=== PATIENT | female | born 1980 | race Caucasian/White ===

== ENCOUNTER → 2017-01-05 | Outpatient (CLI) | payer OTHER ==
--- NOTE | 2017-01-06 07:52 | MR ---
EXAMINATION TYPE: MR ankle LT wo con DATE OF EXAM: 01/05/2017 5:53 PM COMPARISON: NONE HISTORY: Lt ankle and heel pain, plantar fascitis Standard multiplanar, multisequence MRI departmental protocol Multiplanar, multisequence images of the left ankle were acquired. FINDINGS: There is fusiform thickening of the plantar fascia near its calcaneal insertion with the foci of incr eased intrasubstance signal identified. Area of thickening measures approximately 3 cm in length. The re is a mild surrounding edema. There is limited marrow edema at the medial calcaneal tuberosity. The Achilles tendon is intact. Medial and lateral tendinous groups are also intact at this time. No evid ence of bony fracture or osseous lesion. No abnormal fluid collections are seen. IMPRESSION: Findings compatible plantar fasciitis.
== END | disposition home or self-care (01) ==
LOC: RADMRIMAIN 17:03
PROVIDERS: ATTEND Specialist
DX: M72.2 Plantar fascial fibromatosis (principal); M25.571 Pain in right ankle and joints of right foot; M25.572 Pain in left ankle and joints of left foot

== ENCOUNTER 2020-07-04 16:01 | Emergency (ER) | payer OTHER ==
[2020-07-04 16:14] VITALS: RESP 18
[2020-07-04] MEDS ORDERED: methylPREDNISolone SOD SUCCI 125 MG/2 ML VIAL IV STA (16:45)
[2020-07-04] MEDS ORDERED: KETOROLAC 15 MG/ML 1 ML VIAL IVP STA (16:45)
[2020-07-04] MEDS ORDERED: diphenhydrAMINE 50 MG/ML 1 ML VIAL IVP STA (16:45)
[2020-07-04] MEDS ORDERED: FAMOTIDINE 20 MG/2 ML VIAL IV STA (16:45)
[2020-07-04] MEDS ORDERED: SODIUM CHLORIDE 0.9% 1,000 ML IV STA (16:46)
[2020-07-04 17:04] VITALS: BP 133/70; PULSE 84; TEMP 98.3
--- NOTE | 2020-07-04 19:06 | ED ---
General Adult HPI - General Chief complaint: Skin/Abscess/Foreign Body Stated complaint: face swelling Time Seen by Provider: 07/04/20 16:31 Source: patient, EMS, RN notes reviewed Mode of arrival: EMS Limitations: no limitations - History of Present Illness Initial comments: 40-year-old female presents to the emergency department for a [facility] pain. Patient reports that she had dental pain last night. States today when she woke up her face was swollen. She went to her dentist who stated she needed to come to the emergency room for drainage and tooth extraction. Patient reports she was prescribed antibiotics but has not yet started them today. She denies fevers or chills. She denies trismus. Denies difficulty swallowing or handling oral secretions. She states that it is making her sleep differently because of the swelling.Patient has no other complaints at this time including shortness of breath, chest pain, abdominal pain, nausea or vomiting, headache, or visual changes. - Related Data Home Medications Medication Instructions Recorded Confirmed ARIPiprazole [Abilify] 10 mg PO QAM 08/16/19 09/06/19 HYDROcodone/APAP 10-325MG [[place] 1 tab PO Q4HR PRN 08/16/19 08/16/19 10-325] Sertraline [Zoloft] 100 mg PO BID 08/16/19 09/06/19 Vitamin C/Biotin [Hair, Skin and 1 tab PO DAILY 08/16/19 09/06/19 Nails] Allergies Allergy/AdvReac Type Severity Reaction Status Date / Time shellfish derived [Shellfish] Allergy Rash/Hives Verified 07/04/20 16:14 Review of Systems ROS Statement: Those systems with pertinent positive or pertinent negative responses have been documented in the HPI. ROS Other: All systems not noted in ROS Statement are negative. Past Medical History Additional Past Medical History / Comment(s): HEMORROIDS/BLEEDING/PAIN. LATERAL TEAR OF HIP MUSCLE. History of Any Multi-Drug Resistant Organisms: None Reported Additional Past Surgical History / Comment(s): COLON POLYPS. ABDOMINOPLASTY. Past Anesthesia/Blood Transfusion Reactions: No Reported Reaction Past Psychological History: Depression Smoking Status: Current every day smoker Past Alcohol Use History: None Reported Past Drug Use History: None Reported General Exam Limitations: no limitations General appearance: alert, in no apparent distress Head exam: Present: atraumatic, normocephalic, normal inspection Eye exam: Present: normal appearance, PERRL, EOMI. Absent: scleral icterus, conjunctival injection ENT exam: Present: normal exam, mucous membranes moist, TM's normal bilaterally, normal external ear exam. Absent: normal oropharynx (Patient has moderate facial edema noted to the right side of the face. There is no obvious drainable abscess along the right lower gumline. Some edema below the jawline as well. No swelling in the neck.) Neck exam: Present: normal inspection, full ROM. Absent: tenderness, meningismus, lymphadenopathy Respiratory exam: Present: normal lung sounds bilaterally. Absent: respiratory distress, wheezes, rales, rhonchi, stridor Cardiovascular Exam: Present: regular rate, normal rhythm, normal heart sounds. Absent: systolic murmur, diastolic murmur, rubs, gallop, clicks Neurological exam: Present: alert Course Vital Signs 07/04/20 07/04/20 16:12 16:57 Temperature 98.7 F 98.3 F Pulse Rate 93 84 Respiratory 18 18 Rate Blood Pressure 125/84 133/70 O2 Sat by Pulse 100 96 Oximetry Medical Decision Making - Medical Decision Making Vitals are stable. Patient does have edema noted to the right side of the face. There is no obvious drainable abscess along gumline. I did discuss the patient that we will not be able to extract tooth today in the ER however we should have a CAT scan performed and blood work. If patient needs to be admitted and we will consult oral surgery. Patient apparently eloped from the emergency room without telling anyone before IV could be started. She was aware that she may have required admission prior to elopement. I was told during my assessment she had a antibiotic prescribed by the dentist. Disposition Clinical Impression: Facial edema Disposition: Left Against Medical Advice Condition: Undetermined Is patient prescribed a controlled substance at d/c from ED?: No Referrals: Saqib Gayle MD [Primary Care Provider] - 1-2 days Time of Disposition: 19:05
== END 2020-07-04 16:55 | disposition left against medical advice (07) ==
LOC: EC 16:01
DX: R60.0 Localized edema (principal); K08.89 Other specified disorders of teeth and supporting structures; F32.9 Major depressive disorder, single episode, unspecified; F17.200 Nicotine dependence, unspecified, uncomplicated; Z79.899 Other long term (current) drug therapy; Z91.013 Allergy to seafood; Z53.29 Procedure and treatment not carried out because of patient's decision for other reasons
CPT/HCPCS: 99283